=== PATIENT | male | born 1960 | race Caucasian/White ===

== ENCOUNTER → 2023-10-13 19:21 | Outpatient (REF) | payer OTHER, SELFPAY | LOC: MRI 19:21 | PROVIDERS: ATTENDING PHYSICIAN Psychiatry & Neurology Neurology; FAMILY PHYSICIAN Nurse Practitioner Family | DX: R25.1 Tremor, unspecified (principal) | CPT/HCPCS: 70553; A9575 ==

== ENCOUNTER 2024-11-02 22:54 | Emergency (ER) | payer OTHER, SELFPAY ==
[2024-11-02 23:00] VITALS: BP 132/99
[2024-11-03 01:34] LABS: Urine Albumin 2+ (Neg - Trace); Urine Bilirubin Negative (Negative); Urine Character Clear (Clear); Urine Color Amber; Urine Glucose Negative (Negative); Urine Ketone Negative (Negative); Urine Leukocyte Negative (Negative); Urine Nitrite Negative (Negative); Urine Occult Blood 2+ (Negative); Urine Urobilinogen Negative (Neg - 1+)
[2024-11-03 01:40] LABS: % Basophils 0.3 % (0-2); % Immature Granulocytes 0.2 % (0-0.5); % Lymphocytes 8.9 % (20.5-51.1); % Monocytes 8.7 % (1.7-9.3); % Neutrophils 81.9 % (42.2-75.2); Absolute Lymphocytes 0.9 10^3/uL (1.2-3.4); Absolute Monocytes 0.8 10^3/uL (0.1-0.6); Absolute Neutrophils 7.9 10^3/uL (1.4-6.5); Hematocrit 41.8 % (39.0-52.0); Hemoglobin 13.9 g/dL (13.0-18.0); Mean Corp Hgb Conc. 33.3 g/dL (33.0-37.0); Mean Corpuscular Hgb 30.3 pg (27.0-31.0); Mean Corpuscular Volume 91.3 fL (80.0-94.0); Mean Platelet Volume 10.5 fL (7.4-10.4); Nucleated Red Blood Cells % 0 % (-); Platelet Count 224 10^3/uL (130-400); Red Blood Cell Count 4.58 10^6/uL (4.70-6.10); Red Cell Dist. Width 14.5 % (11.5-14.5); White Blood Cell Count 9.7 10^3/uL (4.8-10.8)
[2024-11-03 01:48] LABS: ALT (SGPT) 22 U/L (0-50); AST (SGOT) 29 U/L (17-59); Albumin 4.6 g/dl (3.5-5.0); Alkaline Phosphatase 52 U/L (38-126); Blood Urea Nitrogen 22 mg/dl (9-20); Calcium 9.9 mg/dl (8.4-10.2); Carbon Dioxide 29 mmol/L (22-30); Chloride 107 mmol/L (98-107); Glucose 125 mg/dl (70-99); Lipase 63 U/L (23-300); Potassium 4.4 mmol/L (3.5-5.1); Sodium 144 mmol/L (135-145); Total Bilirubin 0.5 mg/dl (0.2-1.3); Total Protein 7.8 g/dl (6.3-8.2); eGFR > 60.00
[2024-11-03 01:53] LABS: Urine Calcium Oxalate Crystals Present; Urine Squamous Cell 0-2 /LPF (Few)
[2024-11-03 01:55] LABS: Urine White Cell None Seen /HPF (0-5)
--- NOTE | 2024-11-03 02:31 | ED.GENMED ---
History of Present Illness
General
Chief Complaint: Crisis Evaluation
Source: patient
Exam Limitations: none
Time Seen by Provider: 11/03/24 00:33
Nursing documentation reviewed up to this point in time: agreed with
History of Present Illness
History of Present Illness:
64-year-old male presents the emergency department with his sister. He has been living with his father in [place]. When his father , patient did not have a place to go so he moved in with his sister who lives locally. Patient does have
mental health issues. Sister states that today he had a 'psychotic break '. Sister is concerned because she is leaving for [place] to visit her granddaughter on Monday and does not feel that her brother can stay in her home alone. Sister
states that
Past History
Past History
ED Past Medical History: Psychiatric
ED Past Surgical History: None
Social History
Tobacco: Non-smoker
Alcohol: None
Drug: None
Personal: Single
Living: with family
Review of Systems
Review of Systems
Allergies reviewed?: Yes
Other source history: family
All Other Systems: ROS reviewed and negative except as documented in HPI and ROS
Constitutional: Reports no symptoms
EENT: Reports no symptoms
Respiratory: Reports no symptoms
Cardiac: Reports no symptoms
ABD/GI: Reports no symptoms
: Reports no symptoms
Musculoskeletal: Reports no symptoms
Skin: Reports no symptoms
Neurological: Reports no symptoms
Endocrine: Reports no symptoms
Hematologic/Lymphatic: Reports no symptoms
Psychiatric: Reports anxiety and other (Perseveration); Denies suicidal or hallucinations
Phy Exam
General Physical Exam
General Presentation: well appearing
General Skin: warm and dry
General Habitus: normal
General Mental: alert
General Hydration: appears well hydrated
ENT Exam
ENT Exam: EOMI, pharynx normal, neck supple and normocephalic
Eye Exam
Eye Exam: PERRL, cornea clear and conjunctiva normal
Cardiovascular Exam
Cardiovascular Exam: regular rate/rhythm, no edema, no murmur and normal peripheral pulses
Pulmonary Exam
Pulmonary Exam: lungs clear, no respiratory distress, no rales, no crackles, no rhonchi, no stridor, no wheezing and no cough
Gastrointestinal Exam
Gastrointestinal Exam: normal bowel sounds, non tender, soft, no organomegaly, no pulsatile mass and non distended
Neurological Exam
Neurological Exam: alert, oriented x3, no motor deficits and speech normal
Musculoskeletal Exam
Musculoskeletal Exam: full ROM and no edema
Skin Exam
Skin Exam: normal color, warm/dry, no rash and no petechia
Psychiatric Exam
Psychiatric Exam: labile
Course
Orders/Labs/Results
Orders:
Orders
11/03/24
Electrocardiogram (*1) Stat
Reason for Study: Chest Pain
Comment: DONE NO ORDER ENTERED
11/03/24 00:33
Crisis Consult Urgent
Reason for Consult: paranoia, bizzarre behavior
11/03/24 01:05
Electrocardiogram (*1) Urgent
Reason for Study: QTc Monitoring
EKG- Treatment ONCE
11/03/24 01:22
Complete Blood Count/With Diff Urgent
Comprehensive Metabolic Panel Urgent
Lipase Urgent
Urinalysis Reflex To Culture Urgent
Date Specimen was Collected: 11/03/24
Time Specimen was Collected: 01:09
Urine Microscopic Reflex Cult Urgent
Abnormal Lab Results
11/03/24
01:22
RBC 4.58 L 10^6/uL
(4.70-6.10)
MPV 10.5 H fL
(7.4-10.4)
Absolute Neuts (auto) 7.9 H 10^3/uL
(1.4-6.5)
Absolute Lymphs (auto) 0.9 L 10^3/uL
(1.2-3.4)
Absolute Monos (auto) 0.8 H 10^3/uL
(0.1-0.6)
Neutrophils % 81.9 H %
(42.2-75.2)
Lymphocytes % 8.9 L %
(20.5-51.1)
BUN 22 H mg/dl
(9-20)
Glucose 125 H mg/dl
(70-99)
Ur Occult Blood Reflex 2+ A
(Negative)
Urine RBC 3-6 A /HPF
(0-2)
Urine Albumin (Reflex) 2+ A
(Neg - Trace)
11/03/24 01:22
11/03/24 01:22
Vital Signs
Initial and Last Documented VS:
Initial Vital Signs
Temp Pulse Resp BP Pulse Ox
98.9 F 93 18 132/99 98
11/02/24 23:00 11/02/24 23:00 11/02/24 23:00 11/02/24 23:00 11/02/24 23:00
Last Documented Vital Signs
Temp Pulse Resp BP Pulse Ox
98.9 F 70 18 130/67 96
11/02/24 23:00 11/03/24 03:04 11/03/24 03:04 11/03/24 03:04 11/03/24 03:04
*Critical Care Note
Total Time (30-74mins, 75-104mins- exclusive of procedures): Not Applicable
Update Note
Update Note:
Sister had several
Meetings with the crisis. She is. He is reluctant to going in- patient voluntarily. We did give her resources for outpatient services. He does have a case management team. Patient did not express any suicidal or homicidal ideation, intent, or
plan. I do not feel there are grounds for involuntary commitment. Again sister is unwilling to fill out a 302 on him. We spoke about imaging. She states that he has had imaging recently which was normal. We are deferring CAT scan at this point.
Patient has no complaints at this time. Denies any pain. Reports no headache. Denies visual acuity changes. Denies chest pain or shortness of breath. Patient wishes to be discharged back to his sister's home.
ED Attending Note
-
Portions of this chart may have been created with voice recognition software.� Occasional wrong word or��sound alike� substitutions may have occurred due to the inherent limitations of voice recognition software.
Discharge Plan
Departure
Patient Disposition: Home (Routine Discharge)
Date of Disposition: 11/03/24
Time of Disposition: 02:53
Patient with high blood pressure during this ER visit?: Yes
Discharge Problem:
Psychosis
Instructions: Anxiety, Adult (DC), BLOOD PRESSURE
Referrals:
Jakob Boswell MD [Family Provider, Family Practice]
Renetta Velarde [Active, Psychiatry]
Interventions
Interventions:
*Risk Screen - Suicide Last Done: 11/02/24 23:06
*General Assessment Last Done: 11/02/24 23:00
*Neglect/Abuse Screening Last Done: 11/03/24 02:31
*ED- Fall Risk Assessment Last Done: 11/02/24 23:00
*ED COVID-19 Vaccine History Last Done: 11/02/24 23:00
*Nursing Disposition Last Done: 11/03/24 03:04
ED-Psychological Assessment Last Done: 11/03/24 00:00
Discharge Date and Time
Discharge Date/Time: 11/03/24 03:04
Print Language: YAKUT
[2024-11-03 03:04] VITALS: BP 130/67
== END 2024-11-03 03:04 | disposition home or self-care (01) ==
LOC: EMR 22:54
PROVIDERS: EMERGENCY PHYSICIAN Student in an Organized Health Care Education/Training Program; FAMILY PHYSICIAN Family Medicine
DX: F29 Unspecified psychosis not due to a substance or known physiological condition (principal); Z60.2 Problems related to living alone
CPT/HCPCS: 99284; 80053; 81003; 81015; 83690; 85025; 93005